=== PATIENT | female | born 1945 | race Caucasian/White ===

== ENCOUNTER 2023-04-19 14:16 | Emergency (ER) | payer MEDICARE, OTHER, SELFPAY ==
[2023-04-19 14:33] VITALS: BP 217/77; PULSE 75; RESP 16; TEMP 36.7; O2SAT 98; BMI 26.9
--- NOTE | 2023-04-19 14:46 | ECG_ITS ---
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 Measurements Intervals [place] Rate: 78 P: 46 [place]: 155 QRS: -14 QRSD: 90 T: 20 QT: 375 QTc: 428 Interpretive Statements SINUS RHYTHM LOW QRS VOLTAGE IN PRECORDIAL LEADS [QRS DEFLECTION < 1.0 mV IN CHEST LEADS] POSSIBLE ANTERIOR MYOCARDIAL INFARCTION , PROBABLY OLD [30 ms Q WAVE IN V3/V4, OR R < 0.2 mV IN V4] No previous ECG available for comparison Electronically Signed On 04-19-2023 16:06:53 CDT by Quintin Banks M.D. [email or web address]
--- NOTE | 2023-04-19 14:46 | ED_ITS ---
HPI - Epistaxis General: Chief complaint: Epistaxis Stated complaint: sent by [facility]/ high bp Time Seen by Provider: 04/19/23 14:41 Source: patient Mode of arrival: ambulatory Limitations: no limitations History of Present Illness: 77-year-old female who states she does have a history of blood pressure states she has noticed her blood pressures been running higher than normal over the last 2 days states today she had a slight nosebleed so she checked her blood pressure and it was in the 180s. She went to her PCP and her blood pressure there was in the 200s and then sent her here. She has no complaints she denies any headache denies any chest pain she is on blood pressure meds at home. Associated symptoms: Deny fever(s), headache(s) or vomiting Review of Systems Const: Denies: fever(s), chills, body aches or change in appetite Eyes: Denies: blurry vision or eye discomfort ENMT: Reports: epistaxis; Denies: throat pain or dental pain Card: Denies: chest pain Resp: Denies: dyspnea GI: Denies: abdominal pain, nausea, vomiting or diarrhea Musc: Denies: neck pain or back pain Skin/Breast: Denies: rash Neuro: Denies: headache(s) Physical Exam Const: COMMON NORMALS: no acute distress, patient oriented x3 and healthy appearing HENMT: COMMON NORMALS: normocephalic and atraumatic HEAD & SCALP: normocephalic and atraumatic OTHER: No epistaxis at this time Eye: COMMON NORMALS: Equal, round and reactive pupils present and EOMs intact bilaterally PUPIL: Yes Equal, round and reactive pupils present Neck/C-Spine: COMMON NORMALS: full ROM and supple Chest: COMMONS NORMALS: normal inspection of the chest Resp: COMMON NORMALS: normal respiratory effort Cardio: COMMON NORMALS: regular rate, regular rhythm and No murmurs present (Cardio) RATE: regular rate RHYTHM: regular rhythm Extremity: COMMON NORMALS: normal to inspection and full ROM Neuro: COMMON NORMALS: patient oriented x3, moves all extremities and no focal motor deficits Psych: COMMON NORMALS: mental status grossly normal, Normal thought process present and cooperative THOUGHT PROCESS: Normal thought process present Skin: COMMON NORMALS: no rashes or lesions noted and no wounds GENERAL SKIN EXAM: no rashes or lesions noted Course Vital Signs: Vital signs: Vital Signs Temperature 98.0 F 04/19/23 14:33 Pulse Rate 83 04/19/23 15:41 Respiratory Rate 16 04/19/23 14:33 Blood Pressure 175/67 04/19/23 15:41 Pulse Oximetry 99 04/19/23 15:41 Oxygen Delivery Me thod Room Air 04/19/23 14:33 MDM - Epistaxis Medical Decision Making Patient presents here with hypertension she is asymptomatic she had no nosebleed here. Her blood pressure here is improving blood work is normal we will increase her metoprolol dose from 25 twice daily to 50 twice daily. Medical Records I reviewed the patient's medical records. Lab Data I reviewed the patient's lab results. 04/19/23 14:52 04/19/23 14:52 Laboratory Results WBC 6.74 10^3/uL (3.29-11.43) 04/19/23 14:52 RBC 4.07 10^6/uL (3.85-5.65) 04/19/23 14:52 Hgb 12.30 g/dL (11.27-16.99) 04/19/23 14:52 Hct 37.7 % (36-47) 04/19/23 14:52 MCV 92.6 fl (85-98) 04/19/23 14:52 MCH 30.2 pg (27-33) 04/19/23 14:52 MCHC 32.6 g/dL (30-55) 04/19/23 14:52 RDW 13.6 % (12.1-15.1) 04/19/23 14:52 Plt Count 210 10^3/cmm (157-399) 04/19/23 14:52 MPV 9.3 fL (7.4-10.4) 04/19/23 14:52 Neut % (Auto) 66.2 % 04/19/23 14:52 Lymph % (Auto) 25.2 % 04/19/23 14:52 [place] % (Auto) 5.8 % 04/19/23 14:52 Eos % (Auto) 1.8 % 04/19/23 14:52 Baso % (Auto) 0.7 % 04/19/23 14:52 Neut # (Auto) 4.46 10^3/uL (1.8-7.7) 04/19/23 14:52 Lymph # (Auto) 1.7 10^3/uL (0.8-4.8) 04/19/23 14:52 [place] # (Auto) 0.4 10^3/uL (0.2-0.9) 04/19/23 14:52 Eos # (Auto) 0.1 10^3/uL (0.0-0.8) 04/19/23 14:52 Baso # (Auto) 0.1 10^3/uL (0.0-0.1) 04/19/23 14:52 Nucleated RBC % (auto) 0 % 04/19/23 14:52 Nucleated RBCs # 0.0 /100WBC 04/19/23 14:52 Sodium 137 mmol/L (136-145) 04/19/23 14:52 Potassium 4.0 mmol/L (3.5-5.1) 04/19/23 14:52 Chloride 101 mmol/L (98-107) 04/19/23 14:52 Carbon Dioxide 27 mmol/L (22-29) 04/19/23 14:52 Anion Gap 13.0 (5-19) 04/19/23 14:52 BUN 19 mg/dL (8-23) 04/19/23 14:52 Creatinine 0.8 mg/dL (0.5-0.9) 04/19/23 14:52 GFR Calculation Not Reportable 04/19/23 14:52 Glucose 104 mg/dL (65-115) 04/19/23 14:52 Calculated Osmolality 287 mOsm/kg (285-295) 04/19/23 14:52 Calcium 9.9 mg/dL (8.5-10.5) 04/19/23 14:52 No radiology studies performed this visit Discharge Plan Discharge Patient Disposition: Home Clinical Impression: Hypertension Condition: Stable Prescriptions: New metoprolol tartrate 50 mg tablet 50 mg PO BID Qty: 60 0RF Discontinued metoprolol tartrate 25 mg tablet 25 mg PO BID No Action valsartan-hydrochlorothiazide 80-12.5 mg tablet 1 tab PO DAILY CoQ-10 100 mg Capsule 100 mg PO DAILY Discharge Orders: Discharge ED (Routine); Ordered 04/19/23 Ordered By: Buzz Orlando Referrals: Tha Gloria DO [Primary Care Provider] - 1-3 days Discharge Diet: Advance as tolerated Discharge Activity: Resume usual activity Patient Instructions: Hypertension (ED) Coding Level of Care Code ED Distribution Sales Representative for Estiven Cronin
[2023-04-19 14:58] LABS: Basophils # 0.1 10^3/uL (0.0-0.1); Basophils % 0.7 %; Eosinophils # 0.1 10^3/uL (0.0-0.8); Eosinophils % 1.8 %; Hematocrit 37.7 % (36-47); Lymphocytes # 1.7 10^3/uL (0.8-4.8); Lymphocytes % 25.2 %; Mean Corpuscular HGB Conc 32.6 g/dL (30-55); Mean Corpuscular Hemoglobin 30.2 pg (27-33); Mean Corpuscular Volume 92.6 fl (85-98); Mean Platelet Volume 9.3 fL (7.4-10.4); Monocytes # 0.4 10^3/uL (0.2-0.9); Monocytes % 5.8 %; Neutrophils # 4.46 10^3/uL (1.8-7.7); Neutrophils % 66.2 %; Nucleated Red Blood Cells % 0 %; Platelet Count 210 10^3/cmm (157-399); Red Blood Count 4.07 10^6/uL (3.85-5.65); Red Cell Distribution Width 13.6 % (12.1-15.1); White Blood Count 6.74 10^3/uL (3.29-11.43)
[2023-04-19] MEDS: hyDRALAzine 20 mg/mL INJ 1 mL 10 MG IVP (14:58)
[2023-04-19 15:08] VITALS: BP 194/83
[2023-04-19 15:17] LABS: Blood Urea Nitrogen 19 mg/dL (8-23); Calcium 9.9 mg/dL (8.5-10.5); Carbon Dioxide 27 mmol/L (22-29); Chloride 101 mmol/L (98-107); Glucose 104 mg/dL (65-115); Osmolality Calculated 287 mOsm/kg (285-295); Sodium 137 mmol/L (136-145)
[2023-04-19] MEDS: metoprolol tartrate 25 mg Tablet PO (15:40)
[2023-04-19 15:41] VITALS: BP 175/67; PULSE 83; O2SAT 99
== END 2023-04-19 15:42 | disposition home or self-care (01) ==
PROVIDERS: Emergency Provider Emergency Medicine; PCP Electrodiagnostic Medicine
DX: I10 Essential (primary) hypertension (principal)
CPT/HCPCS: 36415; 80048; 85025; 93005; 96374; 99284; J0360

== ENCOUNTER → 2024-11-21 08:44 | Outpatient (BNVA) | payer MEDICARE, OTHER, SELFPAY | PROVIDERS: PCP Electrodiagnostic Medicine; Visit Provider Student in an Organized Health Care Education/Training Program | DX: M19.012 Primary osteoarthritis, left shoulder (principal) | CPT/HCPCS: 73030; 99203 ==

== ENCOUNTER → 2024-11-30 10:36 | Outpatient (BNVA) | payer MEDICARE, OTHER, SELFPAY | PROVIDERS: PCP Electrodiagnostic Medicine; Visit Provider Student in an Organized Health Care Education/Training Program | DX: M19.012 Primary osteoarthritis, left shoulder (principal) | CPT/HCPCS: 20610; 77002; J3301; J9999 ==

== ENCOUNTER → 2025-03-12 14:10 | Outpatient (BNVA) | payer MEDICARE, OTHER, SELFPAY | PROVIDERS: PCP Electrodiagnostic Medicine; Visit Provider Student in an Organized Health Care Education/Training Program | DX: M19.012 Primary osteoarthritis, left shoulder (principal) | CPT/HCPCS: 99213 ==